=== PATIENT | female | born 1995 | race Caucasian/White ===

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

== ENCOUNTER 2017-04-20 19:34 | Emergency (ER) | payer OTHER ==
[~2017-04-20] VITALS: Ht 160 cm; Wt 50.0 kg
[~2017-04-20 19:34] MED LIST changes: +PROM25TA14 PO
[2017-04-20 19:37] VITALS: BP 102/70; PULSE 81; RESP 20; O2SAT 98
--- NOTE | 2017-04-20 21:06 | ED.REPORT ---
HPI-General Illness Date of Service Apr 20, 2017 ED Provider: Keyshawn Jiménez MD Patient is a 22 year old transgender female that identifies as a male who presents to the ED complaining of left lower quadrant abdominal pain onset this evening. Associated symptoms include nausea and pain that radiates into the left groin. Patient states that he has had normal bowel movements today. He denies vomiting. The patient reports that the pain began suddenly while eating dinner tonight. Patient states that the pain is exacerbated with movement and describes it as sharp and throbbing. He denies any abdominal surgeries or new medications. Nursing Notes Stated Complaint: POSSIBLE HERNIA Chief Complaint: Female Abdominal Pain Nursing Notes Reviewed: Yes Allergies: Coded Allergies: No Known Allergies (Verified Allergy, Unknown, 04/20/17) Scheduled Albuterol HFA (Albuterol HFA) 8.5 Gm Hfa.aer.ad 1 PUFF INHALATION Q4H Fluticasone Propionate (Flovent HFA 110 mcg) 12 Gm Aer.w.adap 2 PUFFS IH BID Loratadine (Claritin) 10 Mg Capsule 10 MG PO DAILY Omeprazole (Omeprazole) 20 Mg Capsule.dr 20 MG PO DAILY Scheduled PRN Promethazine (Promethazine) 25 Mg Tablet 25 MG PO Q6H PRN PRN Headache or nausea Miscellaneous Medications Epinephrine (Epinephrine) 0.1 Mg/1 Ml Syringe 0 IJ General Time Seen by MD: 21:05 Chief Complaint Abdominal pain Hx Obtained From: Patient Arrived By: Walk-in Sudden in Onset?: Yes Onset Occurred: 1 - 4 hours ago Symptom Duration: Since onset Location: : Abdomen Quality: Painful, Sharp, Throbbing Severity: Current: Moderate Similar Sx Previous: No Past Medical History Past Medical History Patient self-identifies Gender as Male and requests to be refered to as Gallo Takes Albuterol Does not take any antidepressants for sleep ADD/ADHD Cortical Cyst on brain MRI [address] Hill Reports: Asthma Past Surgical History Denies Smoking History Never Smoker Social History Alcohol Use: Denies alcohol use Drug Use: Denies drug use Other Social History: Good social support, Lives with parents, Local resident Ambulatory Status Independent Review of Systems Full Review of Systems GI: Reports: Abdominal pain, Nausea, Denies: Constipation, Diarrhea, Vomiting Female: Reports: Pelvic pain Complete sys rev & neg: except as marked. Physical Exam Vital Signs Vital Signs Date Time Temp Pulse Resp B/P Pulse Ox O2 Delivery O2 Flow Rate FiO2 04/20/17 19:37 37.2 81 20 102/70 98 Room Air Initial VS: Reviewed General/Constitutional: Awake, Alert Head / Eyes: Atraumatic, Normocephalic, PERRL, EOMI Respiratory / Chest: Atraumatic, Breath sounds NL, Breath sounds = bilat, No respiratory distress Cardiovascular: Heart rate NL, Regular rhythm, Heart sounds NL, No gallop, No murmurs, No rubs Abdomen: Atraumatic, Soft, No guarding, No rebound, No distention tolerates firm palpation in all 4 quadrants Back: Atraumatic, Inspection NL no percussive flank tenderness bilaterally Upper Extremities Upper Extremity / MS: Atraumatic, Full range of motion Skin: Atraumatic, Color NL, No rash, Warm, Dry Female Genitourinary: Bilingual Secretary present, Atraumatic, External genitalia NL no palpable inguinal hernia Neurologic: Oriented X3, Speech NL Psychiatric: Affect NL, Mood NL Interpretation & Diagnostics Lab Results Interpretation Test 04/20/17 21:18 04/20/17 21:20 04/20/17 22:38 Hold Urine Received (Received) Urine Color Yellow (YELLOW) Urine Appearance Turbid (CLEAR,HAZY) Urine pH 7.0 (5.0-8.0) Urine Specific [place] 1.015 (1.003-1.035) Urine Protein Negativemg/dL (NEG,TRACE) Urine Glucose (UA) Negativemg/dL (NEGATIVE) Urine Ketones Negativemg/dL (NEGATIVE) Urine Occult Blood Negative (NEGATIVE) Urine Nitrite Negative (NEGATIVE) Urine Bilirubin Negative (NEGATIVE) Urine Urobilinogen Normalmg/dL (NORMAL) Urine Leukocyte Esterase Moderate (NEGATIVE) Urine RBC 0-2/hpf (0-2) Urine WBC 6-10/hpf (0-5) Urine Epithelial Cells Few/hpf (NONE-MOD) Urine Crystals None seen (NONE SEEN) Urine Bacteria Few/hpf (NONE-FEW) Urine Hyaline Casts None/lpf (NONE) Urine Granular Casts None seen (NONE SEEN) Urine Waxy Casts None seen (NONE SEEN) Urine Red Blood Cell Casts None seen (NONE SEEN) Urine White Blood Cell Casts None seen (NONE SEEN) Urine Mucus None seen (None Seen) Urine Trichomonas None seen (NONE SEEN) Urine Yeast None (NONE SEEN) Urinalysis Comment None Urine Culture Reflexed Indicated Hold Hoff Top Tube Received (Received) Re-Eval/Medical Decision Med Decision/Clinical Course Patient is a 22 year old transgender female that identifies as a male who presents to the ED complaining of left lower quadrant abdominal pain onset this evening. Associated symptoms include nausea and pain that radiates into the left groin. Patient states that he has had normal bowel movements today. He denies vomiting. The patient reports that the pain began suddenly while eating dinner tonight. Patient states that the pain is exacerbated with movement and describes it as sharp and throbbing. He denies any abdominal surgeries or new medications. Here in the emergency department the patient is afebrile, hemodynamically stable and in no apparent distress. The patient does not seem to have much tenderness on the abdomen though reports feeling quite uncomfortable. Patient does seem to have some underlying cognitive deficits and it is difficult to ascertain what degree the patient's apparent discomfort is related to difficulty coping versus organic illness. Order list: Zofran, IV fluids, Hydromorphone Patient initially mentioned concern for hernia though in my examination I see no evidence thereof. The patient is not suggestive of bowel obstruction. Suspicion for an acute surgical process is relatively low. Ovarian torsion is a possibility though seems unlikely given that the patient does not appear very uncomfortable. Given the unreliable history and examination I opted to start with urinalysis, laboratory studies and CT scan. The patient was signed out to Dr. Palacios pending these results and further evaluation. Patient was stable at time of sign out. Discharge & Departure Shift Change Sign-Out Patient Care Transferred: Yes Discussed Complaint(s): Yes Primary Impression: Abdominal pain Abdominal location: left lower quadrant Qualified Code: R10.32 - Left lower quadrant pain Additional Impression: Nausea Discharge Condition All VS Reviewed: Yes Condition: Stable Referrals: Jessica Bobo MD (PCP) Care Transferred to: Dr. Ileana Ramirez Attestation Portions of this note were transcribed by Christine Patiño. I, Dr. Jiménez personally performed the history, physical exam and medical decision-making; I reviewed and confirmed the accuracy of the information in the transcribed note. Signed by: Ashley Azul, 04/20/17 copies to: Jessica Bobo MD, Beck O MD Apr 20, 2017 21:06 Zayda Patiño Apr 20, 2017 21:11
[2017-04-20] MEDS ORDERED: 0.9% Sodium Chloride 1,000 ML IV ONE (21:14)
[2017-04-20] MEDS ORDERED: Ondansetron 2 mg/mL 2 mL Inj IVPUSH ONE (21:15)
[2017-04-20] MEDS ORDERED: HYDROmorphone 0.5 mg/0.5 mL iSecure Syringe IVPUSH PRN (21:15)
[2017-04-20 21:44] LABS: APPEARANCE,URINE TURBID (CLEAR,HAZY); COLOR,URINE YELLOW (YELLOW); OCCULT BLOOD,URINE NEGATIVE (NEGATIVE); UROBILINOGEN,URINE NORMAL (NORMAL)
[2017-04-20 22:53] LABS: BASOPHILS % (AUTO) 0.4 % (0-3); EOSINOPHILS % (AUTO) 2.5 % (0-5); MONOCYTES % (AUTO) 9.5 % (4-12); Mean Corpuscular Hemoglobin 31.3 pg (27.0-35.0); Mean Corpuscular Volume 91.5 fL (81-100); NEUTROPHILS % (AUTO) 43.4 % (40-74); Platelet Count 268 bil/L (150-400)
[2017-04-20 23:27] LABS: Magnesium 2.1 mg/dL (1.6-2.6)
[2017-04-21] MEDS ORDERED: 0.9% Sodium Chloride 1,000 ML IV ONE (00:20)
[2017-04-21 01:44] VITALS: BP 100/64; PULSE 72; RESP 18; O2SAT 99
--- NOTE | 2017-04-21 09:14 | DRSVH ---
PROCEDURE: CT ABDOMEN AND PELVIS WITH CONTRAST ([id number]) INDICATIONS: L abdominal pain TECHNIQUE: After the administration of intravenous contrast, 5 mm thick sections acquired from the diaphragm to the symphysis. 5 mm coronal and sagittal reformats were acquired. For radiation dose reduction, the following was used: automated exposure control, adjustment of mA and/or kV according to patient siz e. COMPARISON: None. FINDINGS: Image quality: Excellent. ABDOMEN: Lung bases: Lung bases are clear. Heart size is normal. Solid organs: Liver and spleen are normal in size and enhancement. Gallbladder appears normal. Rishabh iary system is non dilated. Pancreas enhances normally. No adrenal nodules. Kidneys demonstrate no rmal size and enhancement, without hydronephrosis. Peritoneum and bowel: Bowel loops demonstrate normal wall thickness and caliber. No free fluid or a ir. Nodes and vessels: No retroperitoneal or mesenteric adenopathy by size criteria. Aorta and inferior vena cava are normal in size. Miscellaneous: No ventral hernias. PELVIS: Genitourinary: Bladder wall thickness is normal. Miscellaneous: No inguinal hernias or adenopathy. Bones: No suspicious bony lesions. No vertebral body compression fractures. IMPRESSION: Source of left lower quadrant pain is not identified. The study appears normal for age. Note: These findings are concordant with the preliminary interpretation, however the initial report r aised a concern for presence of possible mesenteric adenitis. This is considered to not be present. Dictated by: Kurtis Allen M.D. on 04/21/2017 at 9:06 Approved by: Kurtis Allen M.D. on 04/21/2017 at 9:12
== END 2017-04-21 01:46 | disposition home or self-care (01) ==
LOC: SED 19:34
DX: R10.32 Left lower quadrant pain (principal); R11.0 Nausea
CPT/HCPCS: 36415; 74177; 80053; 81000; 83690; 83735; 85025; 87086; 87088; 87147; 96361; 96374; 96375; 99285; J1170; J2405; J7030; Q9967